=== PATIENT | female | born 2005 | race Caucasian/White ===

== ENCOUNTER 2024-08-10 16:46 | Emergency (ER) | payer SELFPAY ==
[2024-08-10 16:47] VITALS: BP 155/107
[2024-08-10] MEDS: MOTRIN 600 MG PO (17:11)
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
== END 2024-08-10 17:19 | disposition home or self-care (01) ==
LOC: EMR 16:46
PROVIDERS: EMERGENCY PHYSICIAN Student in an Organized Health Care Education/Training Program
DX: S50.12XA Contusion of left forearm, initial encounter (principal); W22.8XXA Striking against or struck by other objects, initial encounter
CPT/HCPCS: 99283; 73090